=== PATIENT | male | born 1975 | race African-American/Black ===

== ENCOUNTER 2021-10-16 01:22 | Emergency (ER) | payer OTHER ==
[~2021-10-16] VITALS: Ht 182.9 cm; Wt 201.4 kg
[2021-10-16] MEDS ORDERED: 0.9% SODIUM CHLORIDE 10 ML SYRINGE IVP ONE (01:24)
[2021-10-16] MEDS ORDERED: AMIODARONE HCL 50 MG/ML 3 ML VIAL IV ONE (01:24)
[2021-10-16] MEDS ORDERED: CALCIUM CHLORIDE 100 MG/ML 10 ML SYRINGE IVP ONE (01:24)
[2021-10-16] MEDS ORDERED: EPINEPHrine 1:10,000 [1 MG/10 ML] SYRINGE IVP ONE (01:24)
[2021-10-16] MEDS ORDERED: ALTEPLASE 100 MG in WATER FOR INJECTION,STERILE 100 ML IV ONE (01:30)
[2021-10-16 01:44] VITALS: BP 0/0
[2021-10-16 07:12] LABS: COVID AG,FIA SOURCE NASAL SWAB
== END 2021-10-16 07:48 ==
LOC: EMS 01:23
DX: I46.9 Cardiac arrest, cause unspecified (principal); Z20.822 Contact with and (suspected) exposure to COVID-19
CPT/HCPCS: 92950; 99285; 92977; 87426; J2997; J0282; J0171; J3490; X7700; 37195